=== PATIENT | male | born 1955 | race African-American/Black ===

== ENCOUNTER → 2017-03-11 | Outpatient (CLI) | payer OTHER ==
[~2017-03-11] VITALS: Ht 185.4 cm; Wt 117.0 kg
[~2017-03-11] MED LIST: CELEBREX 200 M200 MG PO; DICLOFENAC SOD50 M1 PO; FENTANYL PA50 MCG/HR TRANSDERM; FLEXERIL PO; HYDROCODON-ACE1 EAC5 PO; HYDROCODON-ACE1 EAC8 PO; HYDROCODONE-AP1 EA11 PO; IBUPROFEN 800800 M1 PO; KETOPROFEN50 MG PO; LISINOPRIL PO; MOBIC15 MG PO; MS CONTIN15 MG PO; MS CONTIN30 MG PO; NEURONTIN 300300 M1 PO; NEURONTIN100 MG PO; NORTRIPTYLINE H10 M1 PO; OXYCODONE HCL20 M1 PO; OXYCODONE-ACET1 EAC2 PO; OXYCONTIN20 M1 PO; PROAIR HFA8.5 GM IH; ROBAXIN500 MG PO; TRAMADOL 50 MG50 MG PO; VOLTAREN GEL 1100 G2 TOP; [UNRECOGNIZED DRUG - REMARK]
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
[2017-03-11 10:54] VITALS: BP 127/93
== END ==
LOC: PAIN 06:33
DX: M79.671 Pain in right foot (principal); F17.210 Nicotine dependence, cigarettes, uncomplicated

== ENCOUNTER → 2017-04-18 | Outpatient (CLI) | payer OTHER ==
[~2017-04-18] VITALS: Ht 185.4 cm; Wt 118.6 kg
[2017-04-18 10:26] VITALS: BP 111/75
== END | disposition home or self-care (01) ==
LOC: PAIN 06:37
DX: M25.571 Pain in right ankle and joints of right foot (principal); M54.5 Low back pain; G89.29 Other chronic pain; F11.20 Opioid dependence, uncomplicated; F17.210 Nicotine dependence, cigarettes, uncomplicated; Z87.828 Personal history of other (healed) physical injury and trauma; Z98.890 Other specified postprocedural states

== ENCOUNTER → 2017-07-08 | Outpatient (CLI) | payer OTHER ==
[~2017-07-08] VITALS: Ht 185.4 cm; Wt 119.8 kg
--- NOTE | ~2017-07-08 | HPC ---
[facility] [place] [address] PAIN MANAGEMENT CONSULTATION Name: CORTNEY HURD Room #: REG [facility] Doug#: [id number] Admission: 07/08/17 Attend Phys: Alhaji Boucher MD Discharge: Date of : 55 Report #: [id number] THIS REPORT FOR: //name// CC: Arsh Boucher DATE OF SERVICE: 07/08/2017 Followup visit for chronic intractable foot pain following trauma. The patient returns to pain clinic today for followup. He has been receiving medications under terms of an opioid agreement, oxycodone 20 mg 3-4 tablets per day. This longstanding dose has been 80 mg a day. This equates to morphine milligram equivalency of 120 mg. At his last visit, I have encouraged him to try and reduce this dose by one tablet a day to oxycodone 20 mg 3 times daily. This would equal 90 morphine milligram equivalents. He was able to get through the 2 months, but he noticed a marked decrease in his function level, his ability to walk and an increase in pain. He tried to remain on that dose through his visit today and he has returned to the pain clinic with his medication dose now for 50 days at 60 mg per day. He has requested that his dose be increased back up. There is a definite difference between 80 and 60 and I have agreed to make that adjustment. Urine drug screen or a buccal drug screen will be performed today. PHYSICAL EXAMINATION: His right foot shows multiple scars from previous surgery. He has a restricted range of motion of the tibiotalar and subtalar joint. He has tenderness throughout the foot involving the plantar surface, lateral and medial aspects. There is no allodynia. There is no evidence of ____ sympathetic activity. Mild swelling is noted. IMPRESSION: 1. Chronic intractable right foot pain related to trauma. He has a tibiotalar calcaneal fusion with emily. Pain is worse with weightbearing. 2. Chronic opioid use under terms of written agreement. I will continue to provide medication above the CDC guideline at 120 morphine milligram equivalents per day. The responsibilities of the patient and the clinic in providing this medication for him to improve his function has been reviewed. He denies any significant side effects, although he does have constipation. Reports that he carefully safeguards all medication. 3. Consider spinal cord stimulation. This might allow us to reduce his opioid requirements. I have given information and spent a total of 25 minutes today during his visit reviewing medications, options [place] [address] PAIN MANAGEMENT CONSULTATION Name: CORTNEY HURD Room #: REG CLI Lenka.#: [id number] Admission: 07/08/17 Attend Phys: Alhaji Boucher MD Discharge: Date of : 55 Report #: [id number] stimulation. He will follow up in three months and we will make a decision on whether to pursue this therapy. By: [id number] Alhaji Boucher MD /irasema
[2017-07-08 09:25] VITALS: BP 124/69
== END | disposition home or self-care (01) ==
LOC: PAIN 07:09
DX: M79.671 Pain in right foot (principal); F17.210 Nicotine dependence, cigarettes, uncomplicated

== ENCOUNTER → 2017-10-17 | Outpatient (CLI) | payer OTHER ==
[~2017-10-17] VITALS: Ht 185.4 cm; Wt 123.5 kg
[~2017-10-17] MED LIST changes: +LIPITOR10 MG PO
--- NOTE | ~2017-10-17 | HPC ---
[facility] [address] [address] PAIN MANAGEMENT CONSULTATION Name: CORTNEY HURD Room #: REG TAOMary Alice Camacho#: [id number] Admission: 10/17/17 Attend Phys: Alhaji Boucher MD Discharge: Date of : 55 Report #: [id number] THIS REPORT FOR: //name// CC: Arsh Ibrahim DO Alhaji Boucher DATE OF SERVICE: 10/17/2017 Followup visit for management of intractable foot pain. The patient has a tibiotalar calcaneal fusion. He has chronic foot pain. He has been able to manage with a total of 90 morphine mg equivalents of oxycodone and we have been able to get him to this dose slowly over the course of this year. This is equal to 90 morphine mg equivalents. He has shown no misuse or abuse. He reports improvement in pain with his medication. He has been able to manage with day-to-day activities more effectively with better pain control. He has had intermittent buccal drug testing performed, which is appropriate for all medications ordered in the clinic with no surprises. He has asked if we can provide some additional medication of a nonopioid type to help with his pain. We discussed his pain is somatic not neuropathic and most of it is bony and articular pain. I think that he might benefit from once a day Howard inhibiting muscle or anti-inflammatory drug and celecoxib or Celebrex is nongeneric and should be affordable. We talked a little bit about spinal cord stimulator last visit. I have pulled back on that and I honestly think that is not a good candidate for that with his current type of pain. PHYSICAL EXAMINATION: GENERAL: He is pleasant, alert and oriented. No signs of overmedication, depression or anxiety. VITAL SIGNS: Blood pressure is 113/78, heart rate 70, respirations 20. BMI is 35.8. EXTREMITIES: We discussed weight loss. Right foot reveals multiple scars from previous surgeries restricted range of motion throughout the ankle joint. Diffuse tenderness mostly along the plantar surface, but also medially as well. Mild swelling noted once again. IMPRESSION: 1. Chronic right foot pain related to trauma. Status post tibiotalar calcaneal fusion with emily. 2. Chronic opioid use under terms of written opioid agreement. [facility] guidelines [address] [address] PAIN MANAGEMENT CONSULTATION Name: CORTNEY HURD Room #: REG [facility].#: [id number] Admission: 10/17/17 Attend Phys: Alhaji Boucher MD Discharge: Date of : 55 Report #: [id number] are now met at 90 morphine equivalents. We will try to continue to taper him even more over the course of 2018 as he is able. PLAN: Follow up in 3 months. Prescriptions were written with date to release in 4 and 8 weeks. Plan to do a buccal testing in next visit. <ELECTRONICALLY SIGNED> By: Alhaji Boucher MD 10/21/17 1048 [id number] MD wilman Valadez
[2017-10-17 11:17] VITALS: BP 113/78
== END ==
LOC: PAIN 06:47
DX: G89.29 Other chronic pain (principal); M25.571 Pain in right ankle and joints of right foot; F11.90 Opioid use, unspecified, uncomplicated; Z98.890 Other specified postprocedural states

== ENCOUNTER → 2018-01-02 | Outpatient (CLI) | payer OTHER ==
[~2018-01-02] VITALS: Ht 185.4 cm; Wt 121.7 kg
--- NOTE | ~2018-01-02 | HPC ---
[facility] [place] [address] PAIN MANAGEMENT CONSULTATION Name: CORTNEY HURD Room #: REG Mary Alice Lenka.#: [id number] Admission: 01/02/18 Attend Phys: Alhaji Boucher MD Discharge: Date of : 55 Report #: [id number] THIS REPORT FOR: //name// CC: Arsh Kim DATE OF SERVICE: 01/02/2018 Followup visit for chronic intractable right foot pain. The patient is here for a 3-month interval followup visit. He was last seen on 10/17/2017. He has ongoing chronic daily pain that affects his gait. He says he is never without pain. Even with medication I provide, he scores his daily pain is a 6/10. He has had to use a cane at times. It has been few years now since his tibiotalocalcaneal fusion. The joint is very stiff and rigid as one would expect. He has most of his pain around the joint, particularly with weightbearing. He says that he receives least 50% pain relief from his medication. At each visit, we now requested pain impact score. I am glad it showed that this pain impact has dropped from 58 today to a 48. His opioid risk tool shows him at low risk for addiction with a score of 0. I asked about his function at home. He and his do not go out all that much. I encouraged him to try and remain as active as possible. He denies use of tobacco or alcohol. PHYSICAL EXAMINATION: His blood pressure is 135/73, heart rate 83, respirations 16. BMI is 35.4. He is able to move from sitting to standing position independently, walks with antalgic gait. He has diffuse tenderness along the plantar surface and medially along the ankle and the right foot. There are multiple scars from previous surgeries and mild swelling. IMPRESSION: 1. Chronic right foot pain, diffuse through the ankle and into the forefoot, status post tibiotalocalcaneal fusion with emily. 2. Chronic opioid use under terms of written opioid agreement. We had a good talk again today about the importance of safeguarding all his medications. PLAN: I will continue his medication, which is provided with monthly release. His doses oxycodone 20 mg 3 tablets daily for a total of 60 mg of oxycodone. This equals 90 morphine milligram equivalents. I have also prescribed providing him with Celebrex 200 mg daily, which has provided a good co-analgesic effect and today, I have offered him Robaxin 500 mg b.i.d. for muscle spasm. Followup [address] [address] PAIN MANAGEMENT CONSULTATION Name: CORTNEY HURD Room #: REG [facility] Dione.#: [id number] Admission: 01/02/18 Attend Phys: Alhaji Boucher MD Discharge: Date of : 55 Report #: [id number] is planned in 3 months. Recent buccal drug screen was reviewed and appropriate for medications provided. <ELECTRONICALLY SIGNED> By: Alhaji Boucher MD 01/27/18 1408 [id number] Alhaji Boucher MD /nt
[2018-01-02 10:57] VITALS: BP 135/73
== END ==
LOC: PAIN 06:59
DX: G89.29 Other chronic pain (principal); M79.672 Pain in left foot; F11.90 Opioid use, unspecified, uncomplicated; Z98.890 Other specified postprocedural states

== ENCOUNTER → 2018-03-31 | Outpatient (CLI) | payer OTHER ==
[~2018-03-31] VITALS: Ht 185.4 cm; Wt 118.4 kg
[~2018-03-31] MED LIST changes: -LIPITOR10 MG PO
--- NOTE | ~2018-03-31 | HPC ---
[facility] [place] [address] PAIN MANAGEMENT CONSULTATION Name: CORTNEY HURD Room #: REG TAOMary Alice Camacho#: [id number] Admission: 03/31/18 Attend Phys: Alhaji Boucher MD Discharge: Date of : 55 Report #: [id number] THIS REPORT FOR: //name// CC: Arsh Boucher DATE OF SERVICE: 03/31/2018 Followup visit for management of chronic right foot pain status post tibiotalocalcaneal fusion with emily. This is a followup visit for the patient who I see at 3-month intervals. He has been a longstanding patient of our clinic dating back nearly 10 years. He has been on an opioid agreement. I have provided him with fairly consistent level of oxycodone along with morphine. We switched him to oxycodone in 2013 and his dose has been around 60 mg for the last couple of years. This provides him with adequate pain control that he is able to be active around the home without as much pain. He can walk more. He can travel. He is now retired. He and his recently went to [place] to celebrate Melquiades Gimenez. He was able to sightsee and do other activities with the use of his medication. They would not have otherwise been able to do. He denies use of tobacco or alcohol. We had a long discussion today about the CDC guidelines once again. We talked about his use of medicine, 60 mg of oxycodone equates to 90 morphine milligram equivalents at the upper level of of the CDC guideline dosing restriction. I talked about challenges in receiving higher dose opioids that may occur over the course of the next several years. We have made some tapering efforts within the last year, so this is actually a lower dose for him. He uses Celebrex in addition to Robaxin as co-analgesics effectively without side effects. PHYSICAL EXAMINATION: GENERAL: He is pleasant, alert and oriented, without signs of overmedication. VITAL SIGNS: Blood pressure 131/75, heart rate 64, respirations 16. BMI is 34.4. EXTREMITIES: He has minimal mobility of the right ankle. Diffuse tenderness along the plantar surface medially along the ankle. Multiple scars from previous surgery. Some light touch allodynia. He has an antalgic gait. IMPRESSION: Chronic right foot pain with ankle fusion, extensive tibiotalocalcaneal. Medications renewed under terms of written opioid agreement including the [address] [address] PAIN MANAGEMENT CONSULTATION Name: CORTNEY HURD Room #: REG CLI Doug#: [id number] Admission: 03/31/18 Attend Phys: Alhaji Boucher MD Discharge: Date of : 55 Report #: [id number] oxycodone, Celebrex and Voltaren gel. He has enough Robaxin for the time being. I talked to him about possibly transitioning to at next visit, although I have found that many insurance companies are not covering this as well and it becomes a financial hardship. Last urine drug screen was performed within the year and was appropriate for medications provided through our clinic. By: [id number] Alhaji Boucher MD /nt
[2018-03-31 10:24] VITALS: BP 131/75
== END ==
LOC: PAIN 07:14
DX: G89.29 Other chronic pain (principal); M79.671 Pain in right foot; F17.200 Nicotine dependence, unspecified, uncomplicated; F11.90 Opioid use, unspecified, uncomplicated; Z79.899 Other long term (current) drug therapy

== ENCOUNTER → 2018-09-29 | Outpatient (CLI) | payer BC, OTHER ==
[~2018-09-29] VITALS: Ht 185.4 cm; Wt 121.7 kg
[~2018-09-29] MED LIST changes: +CELEBREX 200 M200 M1 PO; +LIPITOR10 MG PO
--- NOTE | ~2018-09-29 | HPC ---
[facility] [place] [address] PAIN MANAGEMENT CONSULTATION Name: CORTNEY HURD Room #: REG Mary Alice Camacho#: [id number] Admission: 09/29/18 Attend Phys: Yarely Russell Discharge: Date of : 55 Report #: [id number] THIS REPORT FOR: //name// CC: Yarely Villedaald Patrice DATE OF SERVICE: 09/29/2018 CHIEF COMPLAINT: Chronic right foot pain, status post tibiotalar calcaneal fusion. HISTORY OF PRESENT ILLNESS: This patient is here for medication renewal for his chronic pain in his right foot. He has been stable on his current medications for quite some time. He rates his pain score a 5/10 today as an average of his pain score. He tells me it is worse with his walking, standing and the weather. The weather changes recently have increased his pain, but he understands that that will happen and does not wish any changes with his current medications. He tells me that he does use a brace and his medicines and they are helpful. He does have occasionally low back that goes along with his right foot pain. He tells me that he has had some recent constipation, and in fact last week, he was pretty sick from being constipated. He tells me he takes a herbal tea called Slow Movement that is very helpful in dealing with his constipation. The patient would like a refill of his oxycodone 20 mg medications today. CURRENT ALLERGIES: No known drug allergies. CURRENT LIST OF MEDICATIONS: Voltaren gel 4 times a day, Celebrex 200 mg 1 tablet daily, oxycodone 20 mg 3 times a day, Lipitor 10 mg daily, Robaxin as needed, gabapentin 300 mg 3 times a day and ProAir as needed. PQRS: 1. He has a history of osteoarthritis in his right foot, ankle and hips. He denies rheumatoid arthritis. 2. Height is 6 feet 1 inch, weight is 260 and BMI is 34.4. 3. Vital signs: Blood pressure 130/76, pulse is 72, respirations 16 and oxygen level is 97%. 4. Pain score is 5/10. 5. Fall risk. He denies dizziness. He does not need help walking or standing and has not fallen in the last 3 months. 6. The patient denies blood thinners, does take antihypertensive medicines. 7. Opioid therapy is greater than 6 weeks; therefore, an opioid signed contract is on the chart. Functional assessment tool is 48/70. His risk assessment tool is low. 8. Recreational drug use, the patient denies. He does smoke cigarettes daily and does not drink alcohol. We did check the prescription monitoring system. The patient is filling from Dr. Alhaji Boucher for his oxycodone. There were [address] [address] PAIN MANAGEMENT CONSULTATION Name: VANNESSACORTNEY Kurtis Room #: REG CLMary Alice Camacho#: [id number] Admission: 09/29/18 Attend Phys: Yarely Russell Discharge: Date of : 55 Report #: [id number] two fills, one for tramadol and one for Vicoprofen. The patient tells me that he had a tooth abscess and got prescriptions from them. The patient tells me he did not realize that tramadol was a medicine that would violate his contract and tells me that he did not take the Vicoprofen because he knows that does not work. He thought it was an antibiotic. I reiterated that he has opioid contract on his chart and if he does get medications like that in the past, he is to call our office and we will talk to him if it was a fillable medicine or not. The patient verbalizes understanding for this. The patient has opioid drug screen on the chart within the last year. We will check that at the next visit on this patient. PHYSICAL EXAMINATION: GENERAL: This is a well-developed, well-nourished gentleman that appears his stated age. He is alert and orientated x 3. His affect is appropriate. HEENT: Normocephalic, atraumatic. Extraocular eye muscles are intact. Mucous membranes are moist. NECK: No JVD or adenopathy. Range of motion is appropriate. EXTREMITIES: Lower extremity, his strength judged to be 5/5 in lower extremity all major muscle groups. He has a rigid right foot and ankle and walks with an antalgic gait. IMPRESSION: 1. Chronic intractable right foot pain and ankle pain, status post tibiotalar calcaneal fusion. 2. Management of high-risk medication under terms of written opioid agreement. We reviewed the fact that opiate medications are being used to provide analgesia adequate to support activities of daily living, not attempting to achieve a specific pain score on the 0-10 Visual Analog Scale. The current opiate medications are providing sufficient analgesia to allow the patient to participate in activities of daily living. The patient is not exhibiting any aberrant behavior suggestive of drug diversion. The patient is not having any adverse reactions to medications. The patient is not suffering from daytime somnolence or mental acuity changes. The patient is managing opiate-induced constipation with appropriate zwsb-npv-twofsmy agents and dietary considerations. The patient was counseled on concern for caution with operating a motor vehicle while using opiate medications. A physical exam was performed and the patient's functional status was evaluated. All patients with back pain were advised against the bed rest greater than 4 days and were advised to return to normal activities. Pain score assessment was noted and the treatment plan was reviewed with the patient. All current medications, both prescribed and OTC were reviewed and reconciled on the electronic medical record. Tobacco screening was accomplished and smoking cessation was advised when indicated. BMI was noted and diet/exercise modification was recommended for all patients following outside normal [facility] [address] [place] [address] PAIN MANAGEMENT CONSULTATION Name: VANNESSACORTNEY Kurtis Room #: REG CLMary Alice Camacho#: [id number] Admission: 09/29/18 Attend Phys: Yarely Russell Discharge: Date of : 55 Report #: [id number] parameters. I reviewed with the patient today their responsibilities to safeguard prescription medications, reviewed their responsibility to utilize medications only as prescribed by the physician. They are to seek and receive pain medications only from 1 physician group ( [facility]). They are to use 1 pharmacy and keep the clinic informed if they change pharmacies. Their responsibilities include making followup visits in a timely fashion and to avoid abrupt discontinuation of medication usage. Their responsibilities further include bringing their medications (bottles from the pharmacy with residual pills) to the visit for possible confirmation of pill counts and the patient understands it is their responsibility to submit to random drug screens to ensure both that the medications prescribed are present, and that no other controlled substances are present. All prescriptions provided today were generated electronically. PLAN: 1. We discussed treatment options with this patient today along with the CDC guidelines of morphine milliequivalents of 90 MME or below. The patient is in this category, taking oxycodone 20 mg 3 times a day, which puts him at 90 MME. We did discuss that in the future hopefully the patient will be able to wean down some of this medicine. The patient is agreeable with that. He would like to decrease or get off of all of his medicines if possible, but he is under the understanding that this helps him function in his daily activities and knows that without them he would not be able to walk and be as active as he is. He tells me that these especially help with any weightbearing activities that he deals with. Prescriptions today given for his oxycodone for today, 4-week and 8-week. The patient continues on Voltaren gel and Celebrex, but no prescriptions were needed for that medication today because he does not take them every day on a daily basis. 2. The patient will be seen in 3 months for prescription refills. The patient is agreeable with this plan of care. 3. The patient is seen today in collaboration with Dr. Alhaji Boucher. <ELECTRONICALLY SIGNED> By: Yarely Russell 09/30/18 0758 [id number] Yarely Russell /irasema
[2018-09-29 10:50] VITALS: BP 150/87
== END ==
LOC: PAIN 00:36
DX: M25.571 Pain in right ankle and joints of right foot (principal); G89.4 Chronic pain syndrome; Z79.891 Long term (current) use of opiate analgesic; Z79.899 Other long term (current) drug therapy

== ENCOUNTER → 2018-12-22 | Outpatient (CLI) | payer BC, OTHER ==
[~2018-12-22] VITALS: Ht 185.4 cm; Wt 120.2 kg
--- NOTE | ~2018-12-22 | HPC ---
[facility] [place] [address] [address] PAIN MANAGEMENT CONSULTATION Name: CORTNEY HURD Room #: REG SANDIE Doug#: [id number] Admission: 12/22/18 ������������������ Attend Phys: Alhaji Boucher MD Discharge: ������������������ Date of : 55 Report #: [id number] THIS REPORT FOR: //name// CC: Arsh Ibrahim DO Alhaji Boucher DATE OF SERVICE: 12/22/2018 CHIEF COMPLAINT: Followup visit for chronic right foot pain, status post tibiotalar calcaneal fusion. HISTORY OF PRESENT ILLNESS: The patient is a longstanding patient of the clinic. We looked back and I think I have been seeing him since 2009. He has been on opioid medications under terms of written agreement since that time. We have tapered him slightly over the course of the last year to 60 mg of oxycodone, which he takes 20 three times daily. This generally is effective for him and keeps his MME at 90. This is upper limits of the CDC guidelines. He is little taken back because he would like to take additional medication in the winter when his pain is more prominent. We have been trying to get him to use other measures including co-analgesics to help with pain during the winter months. He has Celebrex 200 mg once daily, Robaxin for muscle spasm and Voltaren gel that he can also apply on the days that he does not use his Celebrex. Discussed the importance of safeguarding all medications. Oxycodone 20 mg does not have an abuse deterrent. It is, however, cost effective for him and this has been an important aspect of his care. Under terms of his written agreement, he must perform a buccal drug screen and he has submitted that today. 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 PQRS reviewed and is positive for osteoarthritis primarily of the lower extremity. His right foot required complete fusion. He denies any recent falls and is not a fall risk. He is not on blood thinners nor did he take hypertensive medications. He is on an opioid agreement. He has risk assessment tool score is 1-2. Pain impact score is 49 out of a possible 70, most prominent effects on sleep and walking ability. He denies use of alcohol, but continues to smoke, he was counseled. PHYSICAL EXAMINATION: GENERAL: He is 6 feet 1 inches, 265 with a BMI of 35.0, the role of weight in helping manage chronic arthritic pain was reviewed. He will make efforts to watch his diet. Blood pressure is 136/78, heart rate 76, respirations 16, O2 sat 98. Pain intensity 6/10. [address] [address] PAIN MANAGEMENT CONSULTATION Name: CORTNEY HURD Room #: REG [facility].#: [id number] Admission: 12/22/18 ������������������ Attend Phys: Alhaji Boucher MD Discharge: ������������������ Date of : 55 Report #: [id number] MUSCULOSKELETAL: He walks with antalgic features. His gait is affected mostly by his ankle, which is fused. There is no swelling noted and limited movement. IMPRESSION: 1. Chronic right foot pain and ankle pain, status post tibiotalar calcaneal fusion. 2. Management of high risk medications under terms of an opioid agreement. PLAN: Medications were renewed 20 mg of oxycodone 3 times daily with a buccal drug screen performed today per terms of his agreement. We talked extensively about the opioid crisis, importance of maintaining his medications carefully under lock and lim. ��������������������������������������������� ���������������������������������������� By: ��������������������������������������������� [id number] Alhaji Boucher MD /nt
[2018-12-22 11:03] VITALS: BP 136/78
--- NOTE | 2018-12-22 11:23 | NUR ---
Pain Clinic Assessment: 1. History of Osteoarthritis: History of Rheumatoid Arthritis: 2. Height: 6 ft. 1 in. 185.4 cm. Weight: 265.0 lb. oz. 120.204 kg. Patient's BMI: 35.0 3. Vital Signs: BP: 136/78 Pulse: 76 Resp: 16 Temp: 02 Sat: 98 ECG Mon: 4. Pain Intensity: 6 5. Fall Risk: Dizziness: N Needs help standing or walking: N Fallen in the last 3 months: N Fall risk comments: 6. Patient on Blood Thinner: None 7. History of Hypertension: N 8. Opioid Therapy greater than 6 weeks: Y Opiate Contract Signed: 01/02/18 9. Risk Assessment Tool Provided: low risk 10. Functional Assessment Tool: 11. Recreational Drug Use: Never Drug Type: Tobacco Use: Current Every Day Smoker Tobacco Type: Amount or Packs/day: How Many Years: Alcohol Use: No Frequency: Quant:
== END ==
LOC: PAIN 07:08
DX: M79.671 Pain in right foot (principal); G89.29 Other chronic pain; Z79.899 Other long term (current) drug therapy; Z98.1 Arthrodesis status

== ENCOUNTER → 2019-03-26 | Outpatient (CLI) | payer BC, OTHER ==
[~2019-03-26] VITALS: Ht 185.4 cm; Wt 118.0 kg
[~2019-03-26] MED LIST changes: +METHOCARBAMOL500 M2 PO
[2019-03-26 10:15] VITALS: BP 137/81
--- NOTE | 2019-03-26 10:27 | NUR ---
Pain Clinic Assessment: 1. History of Osteoarthritis: Not Applicable History of Rheumatoid Arthritis: Not Applicable 2. Height: 6 ft. 1 in. 185.4 cm. Weight: 260.2 lb. oz. 118.026 kg. Patient's BMI: 34.3 3. Vital Signs: BP: 137/81 Pulse: 84 Resp: 16 Temp: 02 Sat: 98 ECG Mon: 4. Pain Intensity: 4 5. Fall Risk: Dizziness: N Needs help standing or walking: N Fallen in the last 3 months: N Fall risk comments: 6. Patient on Blood Thinner: None 7. History of Hypertension: N 8. Opioid Therapy greater than 6 weeks: Y Opiate Contract Signed: 01/02/18 9. Risk Assessment Tool Provided: low risk 10. Functional Assessment Tool: 11. Recreational Drug Use: Never Drug Type: Tobacco Use: Current Every Day Smoker Tobacco Type: Amount or Packs/day: How Many Years: Alcohol Use: No Frequency: Quant:
--- NOTE | 2019-03-30 07:16 | HPC ---
[facility] [address] [place] [place] [address] PAIN MANAGEMENT CONSULTATION Name: CORTNEY HURD Room #: REG [facility] Doug#: [id number] Admission: 03/26/19 ������������������ Attend Phys: Yarely Russell Discharge: ������������������ Date of : 55 Report #: [id number] THIS REPORT FOR: //name// CC: Yarely Ibrahim DATE OF SERVICE: 03/26/2019 CHIEF COMPLAINT: Chronic right foot pain status post tibiotalar calcaneal fusion. HISTORY OF PRESENT ILLNESS: This is a very pleasant 64-year-old gentleman who returns to the pain clinic today for refill of his medications. 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 He tells me that he has no problems with constipation related to his medication. He does not feel overmedicated at all with his current regimen. He rates his pain today a 4/10, worse with walking, standing and weather changes that resting and wearing a brace as well as his medication are very helpful. The patient had requested a letter from this office to give his employer regarding his pain medication that he takes. 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 ALLERGIES: No known drug allergies. CURRENT LIST OF MEDICATIONS: Oxycodone 20 mg every 8 hours, Robaxin 500 mg b.i.d., diclofenac gel as needed, Celebrex 200 mg daily, atorvastatin 10 mg at bedtime, gabapentin 300 mg t.i.d., albuterol inhaler as needed. PQRS: 1. He has osteoarthritis in his lower extremities including his right foot. He denies any rheumatoid arthritis. 2. Height is 6 feet 1 inch, weight is 260, BMI is 34. 3. VITAL SIGNS: 137/81, pulse is 84, respirations 16, oxygen sat is 98. 4. Pain score is 4/10. 5. Denies dizziness. Does not need help walking or standing, has not fallen in the last 3 months. 6. The patient is not on any blood thinners, does take medicine for hypertension. 7. Opioid therapy is greater than 6 weeks; therefore, an opioid signed contract is on the chart. His risk assessment tool is low. His functional assessment is 48/70. 8. Recreational drug use, he denies. He is a current smoker and does not drink alcohol. [address] [address] PAIN MANAGEMENT CONSULTATION Name: CORTNEY HURD Room #: REG CLI Doug#: [id number] Admission: 03/26/19 ������������������ Attend Phys: Yarely Russell Discharge: ������������������ Date of : 55 Report #: [id number] According to the prescription monitoring system, the patient is filling appropriately for his medications; is due to fill in a couple of days. He does safeguard his medications at all times. There is a recent drug screen on the chart as well. PHYSICAL EXAMINATION: GENERAL: This is a well-developed, well-nourished gentleman who appears his stated age. He is alert and orientated. His affect is appropriate. His pain score today is 4/10. HEENT: Normocephalic, atraumatic. Extraocular eye muscles are intact. Mucous membranes are moist. NECK: Without JVD or adenopathy. MUSCULOSKELETAL: He walks with antalgic features, is mostly affected by his right ankle which is a fusion. No swelling noted in his ankle, but he does have limited range of motion. His lower extremity strength judged to be 5/5 in all muscle groups. ASSESSMENT: 1. Chronic right foot pain and ankle pain status post tibiotalar calcaneal fusion. 2. Management of high-risk medications under terms of written opioid agreement. We reviewed the fact that opiate medications are being used to provide analgesia adequate to support activities of daily living, not attempting to achieve a specific pain score on the 0-10 Visual Analog Scale. The current opiate medications are providing sufficient analgesia to allow the patient to participate in activities of daily living. The patient is not exhibiting any aberrant behavior suggestive of drug diversion. The patient is not having any adverse reactions to medications. The patient is not suffering from daytime somnolence or mental acuity changes. The patient is managing opiate-induced constipation with appropriate rxqa-ant-sllwuys agents and dietary considerations. The patient was counseled on concern for caution with operating a motor vehicle while using opiate medications. A physical exam was performed and the patient's functional status was evaluated. All patients with back pain were advised against the bed rest greater than 4 days and were advised to return to normal activities. Pain score assessment was noted and the treatment plan was reviewed with the patient. All current medications, both prescribed and OTC were reviewed and reconciled on the electronic medical record. Tobacco screening was accomplished and smoking cessation was advised when indicated. BMI was noted and diet/exercise modification was recommended for all patients following outside normal parameters. I reviewed with the patient today their responsibilities to [place] [facility] [address] [place] [address] PAIN MANAGEMENT CONSULTATION Name: CORTNEY HURD Room #: REG [facility]#: [id number] Admission: 03/26/19 ������������������ Attend Phys: Yarely Russell Discharge: ������������������ Date of : 55 Report #: [id number] prescription medications, reviewed their responsibility to utilize medications only as prescribed by the physician. They are to seek and receive pain medications only from 1 physician group ( [facility]). They are to use 1 pharmacy and keep the clinic informed if they change pharmacies. Their responsibilities include making followup visits in a timely fashion and to avoid abrupt discontinuation of medication usage. Their responsibilities further include bringing their medications (bottles from the pharmacy with residual pills) to the visit for possible confirmation of pill counts and the patient understands it is their responsibility to submit to random drug screens to ensure both that the medications prescribed are present, and that no other controlled substances are present. All prescriptions provided today were generated electronically. PLAN: 1. We discussed treatment options with the patient today. The patient is doing quite well on his oxycodone 20 mg 3 times a day. Refills of this medication are given for today, 4 and 8-week releases. This places the patient at the 90 morphine milliequivalent according to the CDC guidelines on the high end of their recommendations, but the patient is able to function quite well with this medication and carry on a job. 2. Scripts given for methocarbamol 500 mg #60 with 2 additional refills. The patient does not need his Celebrex or Voltaren gel refill today. 3. We did adjust a letter for his employer regarding that he has taken pain medication for greater than 9 years through our clinic related to his chronic ongoing pain. This was given to the patient to give to his employer. 4. The patient will return in 3 months for refills of his medication. The patient is seen today with Dr. Boucher who also collaborated care. ��������������������������������������������� <ELECTRONICALLY SIGNED> ���������������������������������������� By: Yarely Russell ��������������������������������������������� 03/30/19 0716 [id number] Yarely Russell /nt
== END ==
LOC: PAIN 06:53
DX: M79.671 Pain in right foot (principal); G89.29 Other chronic pain; Z79.891 Long term (current) use of opiate analgesic; Z79.899 Other long term (current) drug therapy

== ENCOUNTER → 2019-06-29 | Outpatient (CLI) | payer BC, OTHER ==
[~2019-06-29] VITALS: Ht 185.4 cm; Wt 118.7 kg
[2019-06-29 10:22] VITALS: BP 123/78
--- NOTE | 2019-06-29 10:39 | NUR ---
Pain Clinic Assessment: 1. History of Osteoarthritis: BACK RT ANKLE RT KNEE History of Rheumatoid Arthritis: Not Applicable 2. Height: 6 ft. 1 in. 185.4 cm. Weight: 261.6 lb. oz. 118.661 kg. Patient's BMI: 34.5 3. Vital Signs: BP: 123/78 Pulse: 79 Resp: 16 Temp: 02 Sat: 97 ECG Mon: 4. Pain Intensity: 7-8 5. Fall Risk: Dizziness: N Needs help standing or walking: N Fallen in the last 3 months: N Fall risk comments: 6. Patient on Blood Thinner: None 7. History of Hypertension: N 8. Opioid Therapy greater than 6 weeks: Y Opiate Contract Signed: 01/02/18 9. Risk Assessment Tool Provided: low risk 10. Functional Assessment Tool: 11. Recreational Drug Use: Never Drug Type: Tobacco Use: Current Every Day Smoker Tobacco Type: Cigarettes Amount or Packs/day: 1 PACK How Many Years: Alcohol Use: No Frequency: Quant:
--- NOTE | 2019-07-02 12:42 | HPC ---
[facility] [place] [address] PAIN MANAGEMENT CONSULTATION Name: CORTNEY HURD Room #: REG [facility] Doug#: [id number] Admission: 06/29/19 ������������������ Attend Phys: Yarely Russell Discharge: ������������������ Date of : 55 Report #: [id number] THIS REPORT FOR: //name// CC: Yarely Ibrahim DO DATE OF SERVICE: 06/29/2019 CHIEF COMPLAINT: Chronic right foot pain status post tibiotalar calcaneal fusion. HISTORY OF PRESENT ILLNESS: This is a very pleasant 64-year-old gentleman who returns to the pain clinic today for refill of his medication. He finds this is beneficial in helping him control his pain, rating his pain score at 7-8 today, which is slightly higher than average. He thinks it is due to weather changes. He does wear a brace on his ankle at most times and compression hose that help relieve some of the discomfort in his right foot and ankle. He feels that walking also aggravates it and the medications he finds very beneficial. He denies any problems with daytime sleepiness or constipation as long as he continues his slow movement tea and eating plenty of fruits and vegetables. ALLERGIES: No known drug allergies. CURRENT LIST OF MEDICATIONS: Methocarbamol 500 mg b.i.d., oxycodone 20 mg 3 times a day, Voltaren gel as needed, Celebrex 200 mg every other day, Lipitor, gabapentin, and ProAir. PQRS: 1. He has osteoarthritis in his lower extremities, including his right ankle. Denies any rheumatoid arthritis. 2. Height is 6 feet 1 inch, weight is 261. BMI is 34. 3. Vital signs 123/78, pulse is 79, respirations 16, oxygen sat is 97. 4. Pain score is 7-8. 5. Denies dizziness, does not need help walking or standing. He has not fallen in the last 3 months. 6. The patient is not on any blood thinners or medicine for hypertension. 7. Opiate therapy is greater than 6 weeks; therefore, an opioid signed contract is on the chart. Risk assessment tool is low. Functional assessment is 40/70. 8. Recreational drug use, he denies. He is a current smoker about 1 pack of cigarettes a day and does not drink alcohol products. According to the prescription monitoring system, the patient is filling in a timely fashion from only one doctor. He is due for his medications today. There is a recent drug screen on the chart that is appropriate for his medications as well. [address] [address] PAIN MANAGEMENT CONSULTATION Name: CORTNEY HURD Room #: REG SANDIE Camacho#: [id number] Admission: 06/29/19 ������������������ Attend Phys: Yarely Russell Discharge: ������������������ Date of : 55 Report #: [id number] PHYSICAL EXAMINATION: GENERAL: This is a well-developed, well-nourished 64-year-old gentleman who appears his stated age. He is alert and orientated. His affect is appropriate. He rates his pain score at 7-8/10 today. HEENT: Normocephalic, atraumatic. Extraocular eye muscles are intact. Mucous membranes are moist. MUSCULOSKELETAL: No swelling noted in his ankle today. He has limited range of motion and does wear compression stockings to his knee. Lower extremity strength judged to be 5/5 in all major muscle groups. He walks with antalgic features that is affected from his right ankle fusion. IMPRESSION: 1. Chronic right foot pain and ankle pain status post tibiotalar calcaneal fusion. 2. Management of high-risk medications under terms of written opioid agreement. We reviewed the fact that opiate medications are being used to provide analgesia adequate to support activities of daily living, not attempting to achieve a specific pain score on the 0-10 Visual Analog Scale. The current opiate medications are providing sufficient analgesia to allow the patient to participate in activities of daily living. The patient is not exhibiting any aberrant behavior suggestive of drug diversion. The patient is not having any adverse reactions to medications. The patient is not suffering from daytime somnolence or mental acuity changes. The patient is managing opiate-induced constipation with appropriate twft-mxn-uunhnrk agents and dietary considerations. The patient was counseled on concern for caution with operating a motor vehicle while using opiate medications. A physical exam was performed and the patient's functional status was evaluated. All patients with back pain were advised against the bed rest greater than 4 days and were advised to return to normal activities. Pain score assessment was noted and the treatment plan was reviewed with the patient. All current medications, both prescribed and OTC were reviewed and reconciled on the electronic medical record. Tobacco screening was accomplished and smoking cessation was advised when indicated. BMI was noted and diet/exercise modification was recommended for all patients following outside normal parameters. I reviewed with the patient today their responsibilities to safeguard prescription medications, reviewed their responsibility to utilize medications only as prescribed by the physician. They are to seek and receive pain medications only from 1 physician group ([facility]). They are to use 1 pharmacy and keep the clinic informed if they change pharmacies. Their responsibilities include making followup visits in a timely fashion and to avoid abrupt discontinuation of medication usage. Their responsibilities further [facility] [address] [place] [address] PAIN MANAGEMENT CONSULTATION Name: CORTNEY HURD Room #: REG [facility]#: [id number] Admission: 06/29/19 ������������������ Attend Phys: Yarely Russell Discharge: ������������������ Date of : 55 Report #: [id number] include bringing their medications (bottles from the pharmacy with residual pills) to the visit for possible confirmation of pill counts and the patient understands it is their responsibility to submit to random drug screens to ensure both that the medications prescribed are present, and that no other controlled substances are present. All prescriptions provided today were generated electronically. PLAN: 1. We discussed treatment options with the patient today. The patient is doing reasonably well with his oxycodone 20 mg 3 times a day. This places him at 90 morphine mEq according to the CDC guidelines. The patient is able to function on this medication and carry out his job. No changes will be made today. Scripts given for today, 4-week and 8-week release. 2. The patient also finds his methocarbamol very beneficial taking 500 mg twice a day. Scripts given for 60 with 2 additional refills as well as Celebrex 200 mg, #90, with 1 additional refill. The patient does take this on an average of every other day. 3. The patient also uses Voltaren gel to his right ankle. Scripts given for this with 2 additional refills as well. 4. The patient is seen by Dr. Alhaji Boucher who also collaborated care today. The patient will return in 3 months' time. ��������������������������������������������� <ELECTRONICALLY SIGNED> ���������������������������������������� By: Yarely Russell ��������������������������������������������� 07/02/19 [id number] Yarely Russell /irasema
== END ==
LOC: PAIN 06:46
DX: M79.671 Pain in right foot (principal); M25.571 Pain in right ankle and joints of right foot; Z79.899 Other long term (current) drug therapy; Z79.891 Long term (current) use of opiate analgesic

== ENCOUNTER → 2019-12-17 | Outpatient (CLI) | payer BC, OTHER ==
[~2019-12-17] VITALS: Ht 185.4 cm; Wt 97.0 kg
[~2019-12-17] MED LIST changes: +CHILDREN'S ASPI81 M1 PO; +ELIQUIS5 MG PO; +VOLTAREN100 GM TOP
[2019-12-17 13:34] VITALS: BP 131/73
--- NOTE | 2019-12-17 13:57 | NUR ---
Pain Clinic Assessment: 1. History of Osteoarthritis: BACK RT ANKLE RT KNEE History of Rheumatoid Arthritis: Not Applicable 2. Height: 6 ft. 1 in. 185.4 cm. Weight: 213.8 lb. oz. 96.979 kg. Patient's BMI: 28.2 3. Vital Signs: BP: 131/73 Pulse: 75 Resp: 16 Temp: 02 Sat: 98 ECG Mon: 4. Pain Intensity: 3 5. Fall Risk: Dizziness: N Needs help standing or walking: Y Fallen in the last 3 months: Y Fall risk comments: 6. Patient on Blood Thinner: *eliquis 7. History of Hypertension: N 8. Opioid Therapy greater than 6 weeks: Y Opiate Contract Signed: 01/02/18 9. Risk Assessment Tool Provided: low risk 10. Functional Assessment Tool: 11. Recreational Drug Use: Never Drug Type: Tobacco Use: Former Smoker Tobacco Type: Amount or Packs/day: How Many Years: Alcohol Use: No Frequency: Quant:
--- NOTE | 2019-12-18 11:22 | HPC ---
[facility] [address] [address] PAIN MANAGEMENT CONSULTATION Name: CORTNEY HURD Room #: REG [facility] Doug#: [id number] Admission: 12/17/19 Attend Phys: Yarely Russell Discharge: Date of : 55 Report #: [id number] THIS REPORT FOR: cc: Arsh Ibrahim Donald L. DO Hocker,Yarely PÉREZ ~ DATE OF SERVICE: 12/17/2019 CHIEF COMPLAINT: Right foot pain, status tibiotalocalcaneal fusion and post cerebrovascular incident. HISTORY OF PRESENT ILLNESS: This is a very pleasant 64-year-old gentleman who returns to the pain clinic today for refill of his medications. He is here present with his today. The patient suffered a cerebrovascular accident in 08/2019. He was hospitalized at [facility] and continues to work with physical therapy, occupational therapy and speech therapy. It affected his right side. He has problems with aphasia and word searching. He is currently in a wheelchair today. The patient is reporting a pain score of 3/10, but then he tells us that his right arm is causing him significant pain and he is needing help with his pain control. His reports that they recently did a CAT scan that ensures he does not need endarterectomy that his vessels were clear. He is now taking Eliquis as well as aspirin as new medications. ALLERGIES: No known drug allergies. CURRENT LIST OF MEDICATIONS: Aspirin 81 mg daily, Eliquis 5 mg daily, oxycodone 20 mg t.i.d., Voltaren Gel, atorvastatin, gabapentin and ProAir. PQRS: 1. He has a history of osteoarthritis in his ankles, knees and back. Denies any rheumatoid arthritis. 2. Height is 6 feet 1 inch, weight is 213, BMI is 28. 4. Vital signs: Blood pressure 131/73, pulse is 75, respirations 16, oxygen sat is 98. 5. Pain score is 3/10. 6. Denies dizziness. Does need help walking. He is in a wheelchair presently today. He has fallen in the last 3 months. 7. The patient is on Eliquis as well as hypertension medicines. 8. Opioid therapy is greater than 6 weeks. He has opioid signed contract. His risk assessment tool is low. Functional assessment is 48/70. 9. He is not on any recreational drugs. He is a former smoker, has quit smoking since his stroke and is not taking any alcohol products. [facility] [address] [place] [address] PAIN MANAGEMENT CONSULTATION Name: CORTNEY HURD Room #: REG [facility] Camacho#: [id number] Admission: 12/17/19 Attend Phys: Yarely Russell Discharge: Date of : 55 Report #: [id number] According to the prescription monitoring system, his last 2 prescriptions for pain management medications were from Dr. Arsh Ibrahim, his primary care doctor. We last saw him in June and he has filled all of our prescriptions. According to the CDC guidelines, his morphine mEq per day is 90 MME. PHYSICAL EXAMINATION: GENERAL: This is alert and orientated 64-year-old gentleman who appears his stated age. His affect is flat. His pain score is 3/10 today. He is having aphasia and word searching at times. HEENT: Normocephalic, atraumatic. Extraocular eye muscles are intact. Mucous membranes are moist. MUSCULOSKELETAL: He has limited range of motion in his right ankle from his fusion. He has right triceps weakness when compared to the left. His overall muscle weakness in his left is 4/5 compared to the right, 5/5 in his upper extremity. Right hand muscle test for finger adbuction is diminished. His lower extremity,right judged to be 4/5 with left being 5/5 for muscle strength. The patient did not ambulate today he is in a wheelchair. Right arm is painfull and has 1+ edema in hand. IMPRESSION: 1. Chronic right foot pain and ankle pain, status post tibiotalocalcaneal fusion. 2. Thalamic pain syndrome. 3. Recent cerebrovascular accident affecting his right side. 4. Management of high risk medications under terms of written opioid agreement. We reviewed the fact that opiate medications are being used to provide analgesia adequate to support activities of daily living, not attempting to achieve a specific pain score on the 0-10 Visual Analog Scale. The current opiate medications are providing sufficient analgesia to allow the patient to participate in activities of daily living. The patient is not exhibiting any aberrant behavior suggestive of drug diversion. The patient is not having any adverse reactions to medications. The patient is not suffering from daytime somnolence or mental acuity changes. The patient is managing opiate-induced constipation with appropriate lhwf-nyl-aiueisg agents and dietary considerations. The patient was counseled on concern for caution with operating a motor vehicle while using opiate medications. PLAN: 1. We discussed treatment options with the patient and family today. The patient is currently not taking blood thinner of Eliquis. I explained to them the risks of taking Celebrex as well as a blood thinner. Per the 's report, he has not been on Celebrex since the stroke. She was unaware of that medication and it was not on Dr. Ibrahim's list so therefore, the patient has not been taking this medicine. 2. I explained that he is able to continue his Voltaren Gel. This will [facility] [address] [address] PAIN MANAGEMENT CONSULTATION Name: CORTNEY HURD Room #: REG SANDIE Camacho#: [id number] Admission: 12/17/19 Attend Phys: Yarely Russell Discharge: Date of : 55 Report #: [id number] help with pain in his right ankle, but he has with inflammation as well as ongoing pain in his right hand. We will refill this medication electronically for 2 tubes with 2 additional refills and send it to the pharmacy. 3. Dr. Alhaji Boucher did see the patient today and collaborated care. We were discussing about possible increase in pain medications versus a tricyclic antidepressant that should help with his thalamic pain syndrome of his right arm. It is tender to the touch. We will start nortriptyline 10 mg at bedtime, taking 1 tablet at night for 30 days. We may increase this to 20 mg for the second month at bedtime. The patient and family reminded that it does cause significant dry mouth and sleepiness in the morning when initially started, but those symptoms do subside the longer he is on it. 4. We will refill his oxycodone 20 mg tablets 3 tablets a day for today, 4 and 8-week. These will be sent electronically to the pharmacy. 5. We will have the patient stop his methocarbamol currently. We may continue this in the future, but will hold it for now. The patient and family verbalized understanding. They will call if they have issues with the nortriptyline, otherwise will be followed up in 3 months. <ELECTRONICALLY SIGNED> By: Yarely Russell 12/18/19 [id number] Yarely Russell /nt
== END ==
LOC: PAIN 06:54
DX: I63.9 Cerebral infarction, unspecified (principal); G81.91 Hemiplegia, unspecified affecting right dominant side; F11.20 Opioid dependence, uncomplicated; G89.4 Chronic pain syndrome; Z79.84 Long term (current) use of oral hypoglycemic drugs; Z88.6 Allergy status to analgesic agent; Z88.8 Allergy status to other drugs, medicaments and biological substances